=== PATIENT | female | born 1970 | race Caucasian/White ===

== ENCOUNTER 2018-08-27 22:15 | Emergency (ER) | payer MEDICAID ==
[~2018-08-27] VITALS: Ht 160 cm; Wt 58.0 kg
[~2018-08-27 22:15] MED LIST: IBUP-24 PO
[2018-08-27 22:47] VITALS: BP 162/93
[2018-08-28] MEDS ORDERED: diphenhydrAMINE 50 mg/ml inj IM ONE (00:40)
[2018-08-28] MEDS ORDERED: metoclopramide 5 mg/ml inj IJ ONE (00:40)
[2018-08-28] MEDS ORDERED: ketorolac trometh. 30mg/ml inj. IM ONE (00:40)
[2018-08-28] MEDS ORDERED: AMOX-100 PO (00:43)
[2018-08-28] MEDS ORDERED: NAPR-996 PO (00:43)
== END 2018-08-28 01:32 | disposition home or self-care (01) ==
LOC: ER 22:16
DX: K02.9 Dental caries, unspecified (principal); G43.909 Migraine, unspecified, not intractable, without status migrainosus; Z98.890 Other specified postprocedural states; Z88.5 Allergy status to narcotic agent; Z79.899 Other long term (current) drug therapy
CPT/HCPCS: 96372; 99283; J1200; J1885; J2765

== ENCOUNTER 2023-08-26 09:32 | Outpatient (CLI) | payer MEDICAID ==
[~2023-08-26 09:32] MED LIST changes: +NAPR-996 PO
[2023-08-26] MEDS ORDERED: GADOTERATE MEGLUMINE 7.5 MMOL/15 ML VIAL IV ONE (11:25)
== END 2023-08-26 23:59 | disposition home or self-care (01) ==
LOC: MRI 09:32
PROVIDERS: ATTEND General Practice
DX: H53.9 Unspecified visual disturbance (principal); G61.81 Chronic inflammatory demyelinating polyneuritis
CPT/HCPCS: 70553; A9575